=== PATIENT | male | born 1995 | race Caucasian/White ===

== ENCOUNTER 2017-02-26 05:29 | Emergency (ER) | payer OTHER ==
[2017-02-26 05:54] VITALS: RESP 16; O2SAT 100
--- NOTE | 2017-02-26 07:20 | C.PDOC ---
History Of Present Illness 21M c/o pain in right lateral chest constant since last . no trauma. became suddenly worse today. worse w movement or breathing. took excedrin today no relief. denies tobacco, drugs. no risk fx dvt/pe. Time Seen by Provider: 02/26/17 07:13 Chief Complaint (Nursing): Medical Clearance Past Medical History Vital Signs: Last Vital Signs Temp 97.8 F 02/26/17 05:51 Pulse 86 02/26/17 05:51 Resp 16 02/26/17 05:51 BP 134/85 02/26/17 05:51 Pulse Ox 100 02/26/17 09:03 - Medical History PMH: Bronchitis (as a child), Diabetes, Hypercholesterolemia Surgical History: Tonsillectomy Family History: States: Other Other Family History: nc - Social History Hx Alcohol Use: Yes Hx Substance Use: No - Immunization History Hx Tetanus Toxoid Vaccination: No Hx Influenza Vaccination: No Hx Pneumococcal Vaccination: No Review Of Systems Constitutional: Negative for: Fever, Chills Cardiovascular: Positive for: Chest Pain. Negative for: Palpitations, Edema, Light Headedness Respiratory: Negative for: Cough, Shortness of Breath, Hemoptysis Gastrointestinal: Negative for: Nausea, Vomiting Skin: Negative for: Rash Neurological: Negative for: Weakness, Numbness Physical Exam - Physical Exam Appears: Well, Non-toxic, No Acute Distress Skin: Warm, Dry Eye(s): bilateral: PERRL Oral Mucosa: Moist Neck: Normal ROM Chest: No Deformity, Tenderness (point tenderness over right lateral ribs), No Ecchymosis, No Subcutaneous Emphysema Cardiovascular: Rhythm Regular Respiratory: No Decreased Breath Sounds, No Accessory Muscle Use, No Rales, No Rhonchi, No Stridor, No Wheezing Extremity: No Swelling Pulses: Left Radial: Normal, Right Radial: Normal Neurological/Psych: Oriented x3, Normal Motor, Normal Sensation, Other (no focal deficits) ED Course And Treatment O2 Sat by Pulse Oximetry: 100 (RA) Pulse Ox Interpretation: Normal Medical Decision Making Medical Decision Making: ecg- nsr 81, nl axis, no acute ischemia cxr- nad wells low risk for pe PERC negative 840 the pt reports improvement w toradol. bedside US shows positive lung sliding and no evidence of ptx on M-mode. Disc results w pt, plan for rx, follow up, and rtr. he v/u and agrees w plan. Disposition - Disposition Disposition: HOME/ ROUTINE Disposition Time: 08:50 Condition: IMPROVED Additional Instructions: Please follow up with your doctor later this week. Return to the ER for any worsening symptoms, difficulty breathing, uncontrolled pain, or for any other concerns. Prescriptions: Naproxen [Naprosyn] 500 mg PO Q12H PRN #10 tablet PRN Reason: Pain, Moderate (4-7) Instructions: Chest Wall Pain (ED) Forms: General Discharge Instructions - Clinical Impression Clinical Impression: Chest wall pain
[2017-02-26 09:06] VITALS: BP 129/77; PULSE 64; TEMP 98.4
--- NOTE | 2017-02-26 09:15 | RAD ---
HISTORY: cp COMPARISON: No prior. TECHNIQUE: Chest PA and lateral FINDINGS: LUNGS: No active pulmonary disease. PLEURA: No significant pleural effusion identified. No pneumothorax apparent. CARDIOVASCULAR: Normal. OSSEOUS STRUCTURES: No significant abnormalities. VISUALIZED UPPER ABDOMEN: Normal. OTHER FINDINGS: None. IMPRESSION: No active disease.
--- NOTE | 2017-02-27 21:25 | CARD ---
APPROVED REPORT EKG Measurement Heart [id number] [id number] <Conclusion> Normal sinus rhythm Minimal voltage criteria for LVH, may be normal variant Nonspecific ST abnormality Abnormal ECG
== END 2017-02-26 09:05 | disposition home or self-care (01) ==
LOC: C.ER 05:29
DX: R07.89 Other chest pain (principal)
CPT/HCPCS: 71020; 93005; 96374; 99284; J1885